=== PATIENT | male | born 2000 | race African-American/Black ===

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

== ENCOUNTER → 2021-02-05 | Outpatient (CLI) | payer OTHER ==
--- NOTE | 2021-02-05 13:49 | EEG ---
DATE OF SERVICE: 02/05/2021 ELECTROENCEPHALOGRAM EEG NUMBER 58-1 OBJECTIVE: The patient is a 20-year-old male with muscle twitching, possible seizures. DESCRIPTION: This is a digital study. Electrodes were placed according to the international 10-20 system. Bipolar and referential montages are available. Activation procedures typically include hyperventilation and intermittent photic stimulation. INTERPRETATION: The waking background consists of 9-10 Hz, 50-100 microvolt activity, symmetrically distributed over parietooccipital regions and reactive to eye opening. Hyperventilation and intermittent photic stimulation are noncontributory. Stage I sleep was achieved with normal electroencephalogram patterns. IMPRESSION: This electroencephalogram with the patient awake and asleep is within normal limits. There is no focal, paroxysmal, or epileptiform activity. Thank you for letting us help with the patient's care. HALEIGH DR: Gwendolyn TID: [id number] CC: Jessica Dumont NP, ARNIE LINDSEY MD
--- NOTE | 2021-02-05 17:25 | KCIC ---
MRI of the brain without contrast 02/05/2021 Clinical History: Seizures. Technique: Unenhanced T1-weighted sagittal and axial and T2-weighted, FLAIR, gradient echo and diffus ion-weighted axial images of the brain were obtained. Additionally thin section T2-weighted and FLAIR coronal images of the temporal lobes were obtained. Findings: Comparison is made to patient's CT scan of the head dated 03/18/2017. Some of the images are degraded by patient motion. The ventricles and sulci are within normal limits in size and configuration. No area of significant a bnormal signal intensity is seen involving the brain parenchyma. No extra-axial fluid collection is s een. There is no MRI evidence of acute ischemia/infarction. Mild mucosal thickening is seen scattered throughout the paranasal sinuses. Normal flow voids are see n within the major vascular structures surrounding the brain parenchyma. IMPRESSION: Negative study. Electronically signed by: Martin Novoa MD (02/05/2021 5:22 PM) [id number]
== END ==
LOC: KCIC MRI 15:03
PROVIDERS: ATTEND Nurse Practitioner Family
DX: R25.3 Fasciculation (principal); R56.9 Unspecified convulsions
CPT/HCPCS: 70551

== ENCOUNTER → 2021-02-05 | Outpatient (CLI) | payer OTHER ==
--- NOTE | 2021-02-25 15:07 | EEG ---
DATE OF SERVICE: 02/05/2021 ELECTROENCEPHALOGRAM EEG NUMBER 58-1 OBJECTIVE: The patient is a 20-year-old male with muscle twitching, possible seizures. DESCRIPTION: This is a digital study. Electrodes were placed according to the international 10-20 system. Bipolar and referential montages are available. Activation procedures typically include hyperventilation and intermittent photic stimulation. INTERPRETATION: The waking background consists of 9-10 Hz, 50-100 microvolt activity, symmetrically distributed over parietooccipital regions and reactive to eye opening. Hyperventilation and intermittent photic stimulation are noncontributory. Stage I sleep was achieved with normal electroencephalogram patterns. IMPRESSION: This electroencephalogram with the patient awake and asleep is within normal limits. There is no focal, paroxysmal, or epileptiform activity. Thank you for letting us help with the patient's care. HALEIGH DR: Gwendolyn TID: [id number] CC: Jessica Dumont NP, ARNIE LINDSEY MD
== END ==
LOC: RT 09:09
PROVIDERS: ATTEND Nurse Practitioner Family
DX: R25.3 Fasciculation (principal); R56.9 Unspecified convulsions
CPT/HCPCS: 95816